=== PATIENT | female | born 1955 | race Two or more races ===

== ENCOUNTER 2021-10-27 13:39 | Emergency (ER) | payer MEDICARE, MEDICAID ==
[~2021-10-27] VITALS: Ht 167.6 cm; Wt 68.2 kg
[2021-10-27 13:41] VITALS: BP 120/79
[2021-10-27 14:43] LABS: COVID AG,FIA SOURCE NASAL SWAB
== END 2021-10-27 15:24 | disposition home or self-care (01) ==
LOC: EMS 13:39
DX: R05.3 Chronic cough (principal); I10 Essential (primary) hypertension; Z20.822 Contact with and (suspected) exposure to COVID-19
CPT/HCPCS: 87426; 99283; U0003

== ENCOUNTER 2021-10-30 06:15 | Day surgery (SDC) | payer MEDICARE, MEDICAID ==
[~2021-10-30] VITALS: Ht 165.1 cm; Wt 75.0 kg
[2021-10-30] MEDS ORDERED: LIDOCAINE 4% 50 ML SOLUTION TP ONE (06:16)
[2021-10-30] MEDS ORDERED: ALBUTEROL SULFATE 2.5 MG/0.5 ML NEB SOLUTION NEB ONE (06:16)
[2021-10-30] MEDS ORDERED: BENZOCAINE 20% 50 MCG/SPRAY 57 GM TP ONE (06:16)
[2021-10-30] MEDS ORDERED: LIDOCAINE 2% 30 ML JELLY TP ONE (06:16)
[2021-10-30] MEDS ORDERED: SODIUM CHLORIDE 0.9% 1,000 ML IV ONE (06:30)
[2021-10-30] MEDS ORDERED: SODIUM CHLORIDE 0.9% 1,000 ML ONE (06:41)
[2021-10-30] MEDS ORDERED: PRED-729 PO (07:17)
[2021-10-30] MEDS ORDERED: MONT-35 PO (07:17)
[2021-10-30] MEDS ORDERED: BECL10.6 IH (07:17)
[2021-10-30] MEDS ORDERED: CHL25 PO (07:17)
[2021-10-30] MEDS ORDERED: FLUT16H NASAL (07:17)
[2021-10-30] MEDS ORDERED: DOXY75CA5 PO (07:17)
[2021-10-30] MEDS ORDERED: GABA-1181 PO (07:17)
[2021-10-30] MEDS ORDERED: AUD NEB (07:17)
[2021-10-30] MEDS ORDERED: FAMO20 PO (07:17)
[2021-10-30] MEDS ORDERED: FentaNYL CITRATE PF 100 MCG/2 ML VIAL ONE (07:29)
[2021-10-30] MEDS ORDERED: MIDAZOLAM HCL 5 MG/ML VIAL ONE (07:29)
[2021-10-30] MEDS ORDERED: MethylPREDNISolone SOD SUCC 125 MG/2 ML VIAL ONE (09:24)
[2021-10-30] MEDS ORDERED: MethylPREDNISolone SOD SUCC 125 MG/2 ML VIAL IVP ONE (09:30)
== END 2021-10-30 10:50 | disposition home or self-care (01) ==
LOC: SURGERY 06:15
PROVIDERS: ATTEND Internal Medicine Critical Care Medicine
DX: J38.4 Edema of larynx (principal); B37.0 Candidal stomatitis; I10 Essential (primary) hypertension; Z98.890 Other specified postprocedural states; Z79.82 Long term (current) use of aspirin; Z98.41 Cataract extraction status, right eye; Z98.42 Cataract extraction status, left eye; Z79.899 Other long term (current) drug therapy
CPT/HCPCS: 31623; 31624; 71045; 87015; 87070; 87101; 87206; 87220; 88112; 88184; 88185; 88305; 88312; J2250; J2930; J3010; J7030; J7613; Z7610